=== PATIENT | female | born 1960 | race Caucasian/White ===

== ENCOUNTER 2017-06-17 06:29 | Day surgery (SDC) | payer BC ==
[~2017-06-17 06:29] MED LIST: Buffered Lidocaine 0.9% SYRIN* 5 ML/SYR SYRINGE INTRADERM ONE; Famotidine IV* 10 MG/ML 2 ML (20 mg) IV ONE
[2017-06-17] MEDS ORDERED: Famotidine IV* 10 MG/ML 2 ML (20 mg) ONE (06:38)
[2017-06-17] MEDS ORDERED: ceFAZolin 2 GM PREMIX (*) 2 GM/50 ML BAG IVPB ONE (06:38)
[2017-06-17] MEDS ORDERED: Lidocaine 1% INJ* 10 MG/ML 30 ML SDV ONE (07:06)
[2017-06-17] MEDS ORDERED: Bupivacaine 0.5% SDV PF* 10-30ML VIAL ONE (07:07)
[2017-06-17] MEDS ORDERED: Dexamethasone IV* 4 MG/ML 1 ML (4 MG) ONE (07:07)
[2017-06-17] MEDS ORDERED: Midazolam* 1 MG/ML 5 ML VIAL (5 MG) ONE (07:25)
[2017-06-17] MEDS ORDERED: fentaNYL* 50 MCG/ML 2 ML VIAL (100 MCG VIAL) ONE (07:51)
[2017-06-17] MEDS ORDERED: Lidocaine 2% PF * 5 ML VIAL ONE (08:16)
[2017-06-17] MEDS ORDERED: Propofol* 10 MG/ML 20 ML BTL IV PUSH ONE (08:16)
[2017-06-17] MEDS ORDERED: Ondansetron INJ* 2 MG/ML VIAL ONE (08:16)
[2017-06-17] MEDS ORDERED: Ketorolac INJ* 30 MG/ML 1 ML VIAL ONE (08:16)
[2017-06-17] MEDS ORDERED: oxyCODONE TAB* 5 MG TAB PO PRN (08:21)
[2017-06-17] MEDS ORDERED: Naloxone* 0.4 MG/ML 1 ML VIAL IV PRN (08:21)
[2017-06-17] MEDS ORDERED: DiMENhydriNATE IV* 50 MG/ML VIAL IV PUSH PRN (08:21)
[2017-06-17] MEDS ORDERED: Acetaminophen TAB* 325 MG PO PRN (08:21)
[2017-06-17 10:02] VITALS: BP 107/56
--- NOTE | 2017-06-17 23:19 | OP ---
DATE OF OPERATION: 06/16/17 - [facility] DATE OF : 64 SURGEON: Johnny Juan DPM GANDY DANCER: None. ANESTHESIA: MAC with local. PRE-OP DIAGNOSES: 1. Painful bunion with hallux limitus, left foot. 2. Painful second left hammer toe. POST-OP DIAGNOSES: 1. Painful bunion with hallux limitus, left foot. 2. Painful second left hammer toe. OPERATIVE PROCEDURE: 1. Bunionectomy of the first metatarsal osteotomy and phalangeal osteotomy on the left foot. 2. Correction of second left hammer toe with PIPJ arthrodesis and MTPJ arthrotomy with extensor tendon lengthening with K-wire fixation, second digit, left foot. PATHOLOGY: Degenerative bone. HEMOSTASIS: Pneumatic ankle tourniquet. ESTIMATED BLOOD LOSS: Less than 20 cc. MATERIALS: Two of the 3.0 mm cannulated Nehalem screws and 1 smooth 0.062-inch K- wire. INDICATIONS: The patient with chronic and progressive left forefoot pain and deformity with a large bunion deformity and hallux interphalangeus and a dorsal and medially contracted second left hammer toe. She has pain with walking, wearing shoes and opts for surgery at this time to attempt to decrease her pain and improve her function and ability to wear a close shoe with less pain. DESCRIPTION OF PROCEDURE: The patient was brought to the operating room, placed on the operating room table in supine position. The anesthesia department administered IV sedation and peripheral nerve block was performed of the left forefoot with a 1:1 mixture of 1% lidocaine plain and 0.5% of Marcaine plain. The left foot was then prepped and draped in the usual fashion. An Esmarch bandage was then utilized to examine the left foot and a pneumatic ankle tourniquet was inflated to 250 mmHg above a well-padded left ankle. Attention was directed to the dorsal medial aspect of the left great toe joint where a curvilinear incision was made. The incision was deepened through the subcutaneous tissues and care being taken to retract neurovascular structures and cauterize the superficial bleeders as needed. Next, an inverted L capsular incision was made in to allow for exposure of the joint. There was noted to be hypertrophic bone at the dorsal medial and medial aspect of the first metatarsal head. Generally, the cartilage surfaces appeared to be smooth with minimal evidence of erosive or degenerative changes. Dissection was carried into the first intermetatarsal space where a traditional lateral release was performed. A McGlamry elevator was needed to free the plantar lateral adhesions of the sesamoid apparatus. The extensor hallucis and brevis tendon was also identified and transected. This will allow for relaxation of lateral contractures. The medial eminence was resected with sagittal saw in a manner as to preserve the sagittal groove. Next, the first metatarsal head Chevron type osteotomy was performed with the apex just dorsal and proximal to the geometric center and the plantar wing was cut slightly plantar proximally to allow for some plantar flexion of the capital fragment. The dorsal wing was also cut and the capital fragment was transposed laterally to correct the position and temporary fixation was achieved with a wire from the screw set. The position was assessed with a C-arm. Next, using standard technique, a 3.0 mm cannulated Nehalem screw was placed across the osteotomy site with care being taken to ensure the tip of the screw did not penetrate into the joint. The temporary fixation was removed. The osteotomy was inspected and found to be solid with no detectable motion or gapping in the fixation and positioning and correction was assessed with the C-arm. The redundant medial shaft of bone was resected with a sagittal saw and a power cassidy was used to smooth rough edges. The surgical site was flushed with copious amounts of normal sterile saline. Dissection was carried further distally and dorsomedially to allow for exposure of the proximal phalanx for the hallux interphalangeals. Next, an angular phalangeal osteotomy was performed with the apex proximal and lateral and the distal medial wedge of the bone was resected and the osteotomy was reduced and temporary fixation was achieved with a wire from the screw set and the positioning and correction was assessed with a C-arm. Using a standard technique, a 3.0 mm cannulated Nehalem screw was placed across the osteotomy site. The temporary fixation was removed. The osteotomy was inspected and found to be solid with no detectable motion or gaping. The screw was 2 fingers tight. The correction, positioning and fixation was assessed with a C-arm. Medial capsulorrhaphy was performed resecting the redundant medial capsule and the surgical site was flushed with copious amounts of normal sterile saline. The capsular and periosteal tissues were reapproximated and secured with a 2-0 Vicryl by holding the hallux in a rectus position. The subcutaneous tissues were reapproximated and secured with 4-0 Vicryl and the skin was reapproximated and secured with 5-0 nylon. Attention was then directed to the second digit, where 2 transverse semi-elliptical incisions were made at the dorsal aspect of the proximal interphalangeal joint and the redundant wedge skin was resected. Transverse tenotomy and capsulotomy was performed at the dorsal aspect of the proximal interphalangeal joint and the proximal phalangeal head and the base of the middle phalanx were resected and a power cassidy was used to smooth the rough edges and the surgical site was flushed with copious amounts of normal sterile saline. Next, due to contracture at the metatarso-phalangeal joint level, a curvilinear incision was made dorsally. Dissection was carried down with care being taken to retract neurovascular structures and cauterize superficial bleeders as needed. The extensor clarke was released and Z extensor tendon lengthening procedure was performed and the dorsal capsule was incised and a McGlamry elevator was needed to free the plantar adhesions of the joint. This being done, using smooth 0.062 inch K-wire driven to the base of the middle phalanx and it was driven to the tip of the toe, retrograde through the proximal phalanx back across the metatarsophalangeal joint into the second metatarsal while holding the digit in a corrected desired position. The position and correction was assessed with a C-arm. The wire was then cut and capped. The surgical site was again flushed with copious amounts of normal sterile saline. The periosteal and capsular tissues were reapproximated and secured with 4-0 Vicryl. Subcutaneous tissues were reapproximated and secured with 4-0 Vicryl and the skin was reapproximated and secured with 5-0 nylon. 12 mg of dexamethasone phosphate were infiltrated about the surgical sites and the incisions were dressed with Xeroform gauze and light sterile compressive dressing with 4x4 gauze, Gabrielle, and a leg Coban wrap. The pneumatic ankle tourniquet was deflated about the left ankle and after a few moments, prompt hyperemic refill was noted in all 5 digits. Having appeared to have tolerated the procedures and anesthesia well, the patient was transported via cart from the operating room to Recovery in satisfactory condition with cap refill less than 5 seconds to all digits of the left foot. [id number]/[facility] #: [id number] MTDD
--- NOTE | 2017-06-18 15:59 | RAD ---
INDICATION: Hallux valgus; osteotomy procedural fluoroscopy. COMPARISON: No relevant prior exams available on the [facility] PACS for comparison. TECHNIQUE: 13 seconds fluoroscopy. FINDINGS: Spot images document a solitary lag screws traversing the first metatarsal and first proximal phalanx osteotomy sites. IMPRESSION: Procedural fluoroscopy. CPT II Codes: 6045F
== END 2017-06-17 09:57 | disposition home or self-care (01) ==
LOC: OREAST 06:29
PROVIDERS: ATTEND Podiatrist Foot Surgery
DX: M21.612 Bunion of left foot (principal); M20.5X2 Other deformities of toe(s) (acquired), left foot; M20.42 Other hammer toe(s) (acquired), left foot; F32.9 Major depressive disorder, single episode, unspecified; Z88.2 Allergy status to sulfonamides
CPT/HCPCS: 76000; C1713; C1776; J0690; J1100; J1885; J2250; J2405; J2704; J3010